=== PATIENT | female | born 1990 | race Caucasian/White ===

== ENCOUNTER 2017-02-15 11:05 | Emergency (ER) | payer MEDICAID, OTHER ==
[2017-02-15 11:30] VITALS: BP 122/67
--- NOTE | 2017-02-15 11:34 | ER Document Report ---
ED Medical Screen (RME) - General Stated Complaint: THROAT PAIN Notes: 26 yo female c/o sore throat x 3 days. + fever. + tonsillar exudate. no abscess appreciated no difficulty talking or swallowing TRAVEL OUTSIDE OF THE [place] IN LAST 30 DAYS: No - Related Data Allergies/Adverse Reactions: No Known Allergies Allergy (Verified 02/07/17 16:41) Past Medical History Renal/ Medical History: Denies: Hx Peritoneal Dialysis Musculoskeltal Medical History: Reports Hx Musculoskeletal Trauma Traumatic Medical History: Reports: Hx Fractures - arm right - Immunizations Immunizations up to date: Yes Hx Diphtheria, Pertussis, Tetanus Vaccination: Yes Physical Exam - Vital signs Vitals: Temp Pulse Resp BP Pulse Ox 98.8 F 106 H 16 122/67 97 02/15/17 11:28 02/15/17 11:28 02/15/17 11:28 02/15/17 11:28 02/15/17 11:28 Course - Vital Signs Vital signs: Temp Pulse Resp BP Pulse Ox 98.8 F 106 H 16 122/67 97 02/15/17 11:28 02/15/17 11:28 02/15/17 11:28 02/15/17 11:28 02/15/17 11:28
--- NOTE | 2017-02-15 12:05 | ER Document Report ---
ED ENT - General Chief Complaint: Sore Throat Stated Complaint: THROAT PAIN Notes: The patient is a 26-year-old female who presents with 2 days of sore throat and fevers. She is having pain when she swallows, but she is able to swallow. Denies trismus, tongue elevation, cough, stridor, nausea or vomiting. TRAVEL OUTSIDE OF THE [place] IN LAST 30 DAYS: No - Related Data Allergies/Adverse Reactions: No Known Allergies Allergy (Verified 02/07/17 16:41) Past Medical History - General Information source: Patient - Social History Smoking Status: Current Every Day Smoker Smoking Education Provided: Yes - Patient counseled about smoking cessation for 5 minutes. Frequency of alcohol use: None Drug Abuse: None Family History: Reviewed & Not Pertinent, CVA, Hyperlipidemia Patient has suicidal ideation: No Patient has homicidal ideation: No Renal/ Medical History: Denies: Hx Peritoneal Dialysis Musculoskeltal Medical History: Reports Hx Musculoskeletal Trauma Traumatic Medical History: Reports: Hx Fractures - arm right - Immunizations Immunizations up to date: Yes Hx Diphtheria, Pertussis, Tetanus Vaccination: Yes Review of Systems - Review of Systems Notes: REVIEW OF SYSTEMS: CONSTITUTIONAL: -fevers, -chills EENT: -eye pain, -difficulty swallowing, -nasal congestion, +sore throat CARDIOVASCULAR:-chest pain, -syncope. RESPIRATORY: -cough, -SOB GASTROINTESTINAL: -abdominal pain, -nausea, -vomiting, -diarrhea GENITOURINARY: -dysuria, -hematuria MUSCULOSKELETAL: -back pain, -neck pain SKIN: -rash or skin lesions. HEMATOLOGIC: -easy bruising or bleeding. LYMPHATIC: -swollen, enlarged glands. NEUROLOGICAL: -altered mental status or loss of consciousness, -headache, - neurologic symptoms PSYCHIATRIC: -anxiety, -depression. ALL OTHER SYSTEMS REVIEWED AND NEGATIVE. Physical Exam - Vital signs Vitals: Temp Pulse Resp BP Pulse Ox 98.8 F 106 H 16 122/67 97 02/15/17 11:28 02/15/17 11:28 02/15/17 11:28 02/15/17 11:28 02/15/17 11:28 - Notes Notes: PHYSICAL EXAMINATION: GENERAL: Well-appearing, well-nourished and in no acute distress. HEAD: Atraumatic, normocephalic. EYES: Pupils equal round and reactive to light, extraocular movements intact, sclera anicteric, conjunctiva are normal. ENT: Tonsillar exudates, no trismus or tongue elevation, no asymmetry of the tonsils, nares patent, patent airway, moist mucous membranes. NECK: Normal range of motion, left anterior lymphadenopathy LUNGS: Breath sounds clear to auscultation bilaterally and equal. No wheezes rales or rhonchi. HEART: Regular rate and rhythm without murmurs ABDOMEN: Soft, nontender, normoactive bowel sounds. No guarding, no rebound. No masses appreciated. EXTREMITIES: Normal range of motion, no pitting or edema. No cyanosis. NEUROLOGICAL: Cranial nerves grossly intact. Normal speech, normal gait. Normal sensory, motor, and reflex exams. PSYCH: Normal mood, normal affect. SKIN: Warm, Dry, normal turgor, no rashes or lesions noted. Course - Re-evaluation Re-evalutation: Pt with 4 Centor criteria. Rapid strep sent from triage is negative. Culture sent. Provide patient with antibiotic and instructions to fill it if her culture is positive. Also provide patient with Decadron to help with any pain and swelling. No evidence of MEDICAL DEVICE ENGINEER, RPA or epiglottitis at this time. - Vital Signs Vital signs: Temp Pulse Resp BP Pulse Ox 98.8 F 106 H 16 122/67 97 02/15/17 11:28 02/15/17 11:28 02/15/17 11:28 02/15/17 11:28 02/15/17 11:28 Discharge - Discharge Clinical Impression: Acute pharyngitis Qualifiers: Pharyngitis/tonsillitis etiology: unspecified etiology Qualified Code(s): J02.9 - Acute pharyngitis, unspecified Condition: Stable Disposition: HOME, SELF-CARE Additional Instructions: SORE THROAT: Sore throats may be caused by viruses, bacteria, or fungi. Most are due to a virus, and must get better on their own. Bacterial sore throats, particularly those due to "strep," need treatment with antibiotics. If an antibiotic is prescribed, be sure to take the medication for a full 10 days. Failure to take the antibiotic can result in complications such as rheumatic fever. Sometimes, an injection of antibiotics is given instead of pills or liquid. This single "shot" is equal in effectiveness to the oral medication. To relieve symptoms, take acetaminophen for pain. Sip clear liquids frequently, or eat popsicles or ice chips. Anesthetic sprays or lozenges may help. Make sure the air in the room is not too dry. Avoid using decongestants or antihistamines. Call the doctor if there is no improvement in two days, or if you have difficulty breathing, increasing throat pain, high fever, rash, or frequent vomiting. STREP THROAT: Your sore throat is due to the streptococcus germ (strep throat). Strep throat usually makes you feel quite ill with fever and aches, headache, swollen sore throat, and tender bumps under the angles of the jaw. Strep throat requires antibiotic treatment. Although the sore throat may go away by itself, complications such as rheumatic fever, kidney disease, or throat abscess can occur. We usually prescribe antibiotics by mouth. Be sure to take the medicine until it's gone. If you stop early, the strep may come back. If you are vomiting, are severely ill, or can't remember to take pills, we can give you an antibiotic shot. Take acetaminophen or ibuprofen for pain and fever. Sip frequent clear liquids, or use popsicles or ice chips. Anesthetic sprays or lozenges may help. Make sure the air in the room is not too dry. Avoid using decongestants or antihistamines. Call the doctor if there is no improvement in three days, or if you have difficulty breathing, increasing throat pain, high fever, rash, or frequent vomiting. STEROID MEDICATION: You have been given a medicine of the cortisone/steroid class. This medication is used to control inflammation or allergy. It is usually only given for a short period of time, until the acute process subsides. There are usually no side effects from short-term use of cortisone-like medications. Some persons feel an increased sense of well-being and are not sleepy at bedtime. Long-term use of cortisone medications is best avoided, unless required for a severe condition. If your condition does not remit, or relapses after the course of corticosteroid medication, you should consult your physician. FOLLOW-UP CARE: If you have been referred to a physician for follow-up care, call the physician s office for an appointment as you were instructed or within the next two days. If you experience worsening or a significant change in your symptoms, notify the physician immediately or return to the Emergency Department at any time for re-evaluation. Prescriptions: Amoxicillin 500 mg PO Q12H 20 Days Forms: Smoking Cessation Education
[2017-02-15] MEDS ORDERED: DEXAMETHASONE 4 MG TABLET PO ONE (12:41)
== END 2017-02-15 13:10 | disposition home or self-care (01) ==
LOC: ER 11:05
DX: J02.9 Acute pharyngitis, unspecified (principal); F17.200 Nicotine dependence, unspecified, uncomplicated; Z71.6 Tobacco abuse counseling
CPT/HCPCS: 87070; 87880; 99283; 99406

== ENCOUNTER 2017-11-24 16:21 | Emergency (ER) | payer SELFPAY ==
[2017-11-24 16:28] VITALS: BP 96/68
--- NOTE | 2017-11-24 17:03 | ER Document Report ---
ED General - General Chief Complaint: Vaginal Bleeding Stated Complaint: VAGINAL BLEEDING Time Seen by Provider: 11/24/17 16:55 Mode of Arrival: Ambulatory Information source: Patient Notes: Patient is a 27 year old female presenting to the emergency department complaining of vaginal bleeding while onset 3 days ago. Patient states that she had intercourse 10/20/2017 and took Plan B on 10/21/2017. Patient states she has not seen a provider for her possible but has taken multiple tests that came out positive. TRAVEL OUTSIDE OF THE [place] IN LAST 30 DAYS: No - Related Data Allergies/Adverse Reactions: No Known Allergies Allergy (Verified 02/07/17 16:41) Past Medical History - Social History Family History: Reviewed & Not Pertinent, CVA, Hyperlipidemia Renal/ Medical History: Denies: Hx Peritoneal Dialysis Musculoskeltal Medical History: Reports Hx Musculoskeletal Trauma Traumatic Medical History: Reports: Hx Fractures - arm right - Immunizations Immunizations up to date: Yes Hx Diphtheria, Pertussis, Tetanus Vaccination: Yes Physical Exam - Vital signs Vitals: Temp Pulse Resp BP Pulse Ox 98.3 F 97 16 96/68 L 100 11/24/17 16:28 11/24/17 16:28 11/24/17 16:28 11/24/17 16:28 11/24/17 16:28 - General General appearance: Appears well, Alert In distress: None - HEENT Head: Normocephalic, Atraumatic Eyes: Normal - Respiratory Respiratory status: No respiratory distress Course - Vital Signs Vital signs: Temp Pulse Resp BP Pulse Ox 98.3 F 97 16 96/68 L 100 11/24/17 16:28 11/24/17 16:28 11/24/17 16:28 11/24/17 16:28 11/24/17 16:28 Scribe Documentation - Scribe Written by Grisel:: Rakesh Souza
--- NOTE | 2017-11-24 17:12 | ER Document Report ---
ED Medical Screen (RME) - General Mode of Arrival: Ambulatory Information source: Patient <HUMBERTO ALFARO - Last Filed: 11/24/17 17:11> <ARMANDO MILLER - Last Filed: 11/24/17 19:28> - General Chief Complaint: Vaginal Bleeding Stated Complaint: VAGINAL BLEEDING Time Seen by Provider: 11/24/17 16:55 Notes: Patient is a 27 year old female presenting to the emergency department complaining of vaginal bleeding while onset 3 days ago. Patient states that she had intercourse 10/20/2017 and took Plan B on 10/21/2017. Patient states she has not seen a provider for her possible but has taken multiple tests that came out positive. (ANGELINAHUMBERTO) - Related Data Allergies/Adverse Reactions: No Known Allergies Allergy (Verified 02/07/17 16:41) Past Medical History - Social History Chew tobacco use (# tins/day): No Frequency of alcohol use: None Drug Abuse: None Renal/ Medical History: Denies: Hx Peritoneal Dialysis Musculoskeltal Medical History: Reports Hx Musculoskeletal Trauma Traumatic Medical History: Reports: Hx Fractures - arm right - Immunizations Immunizations up to date: Yes Hx Diphtheria, Pertussis, Tetanus Vaccination: Yes <ANGELINA,TAMMORENITA - Last Filed: 11/24/17 17:11> Physical Exam - General General appearance: Appears well, Alert In distress: None - HEENT Head: Normocephalic, Atraumatic Eyes: Normal Conjunctiva: Normal - Respiratory Respiratory status: No respiratory distress <ANGELINAHUMBERTO - Last Filed: 11/24/17 17:11> - Vital signs Vitals: Temp Pulse Resp BP Pulse Ox 98.3 F 97 16 96/68 L 100 11/24/17 16:28 11/24/17 16:28 11/24/17 16:28 11/24/17 16:28 11/24/17 16:28 Course <ANGELINA,TAMMORENITA - Last Filed: 11/24/17 17:11> - Laboratory Result Diagrams: 11/24/17 17:21 11/24/17 17:21 <ARMANDO MILLER - Last Filed: 11/24/17 19:28> - Re-evaluation Re-evalutation: 11/24/17 19:28 I personally performed the services described in the documentation, reviewed and edited the documentation which was dictated to the scribe in my presence, and it accurately records my words and actions. (ARMANDO MILLER) - Vital Signs Vital signs: Temp Pulse Resp BP Pulse Ox 98.3 F 97 16 96/68 L 100 11/24/17 16:28 11/24/17 16:28 11/24/17 16:28 11/24/17 16:28 11/24/17 16:28 - Laboratory Laboratory results interpreted by me: 11/24/17 11/24/17 17:21 17:21 Glucose 64 L Beta HCG, Quant 01685.00 H Urine Glucose (UA) >=500 H Urine Blood MODERATE H Urine Nitrite POSITIVE H Doctor's Discharge <HUMBERTO ALFARO - Last Filed: 11/24/17 17:11> <ARMANDO MILLER - Last Filed: 11/24/17 19:28> - Discharge Clinical Impression: Threatened Qualifiers: Weeks of gestation: 15 weeks Qualified Code(s): Z3A.15 - 15 weeks gestation of UTI (urinary tract infection) Qualifiers: Urinary tract infection type: acute cystitis Hematuria presence: without hematuria Qualified Code(s): N30.00 - Acute cystitis without hematuria Condition: Fair Disposition: HOME, SELF-CARE Instructions: Bleeding During Early ([facility]), Threatened Miscarriage ( [facility]), Urinary Tract Infection, Child ([facility]) Prescriptions: Nitrofurantoin Macrocrystal [Macrodantin] 100 mg PO BID #14 capsule Forms: Return to Work Referrals: Gynecology [Provider Group] - Follow up as needed Scribe Documentation - Scribe Written by Scribe:: Grisel Mariano, 11/24/2017 17:12 acting as scribe for :: Jose L <HUMBERTO ALFARO - Last Filed: 11/24/17 17:11>
[2017-11-24 17:45] LABS: ABSOLUTE MONOCYTES (AUTO) 0.6 10^3/uL (0.1-1.4); ABSOLUTE NEUT (AUTO) 5.1 10^3/uL (1.7-8.2); BASOPHILS % (AUTO) 0.3 % (0-2); EOSINOPHILS % (AUTO) 0.4 % (0-6); HEMATOCRIT 40.8 % (36.0-47.0); HEMOGLOBIN 13.7 g/dL (12.0-15.5); LYMPHOCYTES % (AUTO) 25.6 % (13-45); MEAN CORPUSCULAR HEMOGLOBIN 29.8 pg (27.0-33.4); MEAN CORPUSCULAR HGB CONC 33.5 g/dL (32.0-36.0); MEAN CORPUSCULAR VOLUME 89 fl (80-97); PLATELET COUNT 221 10^3/uL (150-450); RED BLOOD COUNT 4.59 10^6/uL (3.72-5.28); SEGMENTED NEUTROPHILS % (AUTO) 65.7 % (42-78); TOTAL CELLS COUNTED % (AUTO) 100 %; WHITE BLOOD COUNT 7.8 10^3/uL (4.0-10.5)
[2017-11-24 17:47] LABS: AMORPHOUS SEDIMENT,URINE TRACE /HPF; APPEARANCE,URINE CLOUDY; BILIRUBIN,URINE NEGATIVE (NEGATIVE); COLOR,URINE YELLOW; GLUCOSE, URINE >=500 mg/dL (NEGATIVE); KETONES,URINE NEGATIVE (NEGATIVE); LEUKOCYTE ESTERASE,URINE NEGATIVE (NEGATIVE); NITRITE,URINE POSITIVE (NEGATIVE); PROTEIN,URINE NEGATIVE (NEGATIVE); URINE SPECIFIC GRAVITY 1.017; UROBILINOGEN,URINE NEGATIVE mg/dL (<2.0)
[2017-11-24 17:58] LABS: ALANINE AMINOTRANSFERASE 29 U/L (9-52); ALBUMIN 4.3 g/dL (3.5-5.0); ALKALINE PHOSPHATASE 59 U/L (38-126); ANION GAP 12 (5-19); ASPARTATE AMINO TRANSFERASE 18 U/L (14-36); BILIRUBIN,DIRECT 0.2 mg/dL (0.0-0.4); BILIRUBIN,TOTAL 0.3 mg/dL (0.2-1.3); BLOOD UREA NITROGEN 7 mg/dL (7-20); CARBON DIOXIDE 22 mmol/L (22-30); CHLORIDE 106 mmol/L (98-107); GLUCOSE 64 mg/dL (75-110); POTASSIUM 4.2 mmol/L (3.6-5.0); SODIUM 139.9 mmol/L (137-145); TOTAL PROTEIN 6.4 g/dL (6.3-8.2)
--- NOTE | 2017-11-24 18:39 | RADIOLOGY REPORT (SQ) ---
EXAM DESCRIPTION: U/S OB TRANSVAG W/DOPPLER COMPLETED DATE/TIME: 11/24/2017 6:30 pm REASON FOR STUDY: , pain COMPARISON: None. TECHNIQUE: Transvaginal static and realtime grayscale images acquired of the pelvis. Additional arcelia cted spectral and color Doppler images recorded. All images stored on PACs. bHCG: Pending. LIMITATIONS: None. FINDINGS: FETUS: Living intrauterine . EGA: 6 weeks 6 days NELA: 07/14/2018 FHR: 139 beats per minute. SUBCHORIONIC BLEED: Yes SIZE OF BLEED: 2.9 x 1.6 x 1.4 cm UTERUS: No masses. No anomalies. CERVICAL LENGTH: 3.2 cm Closed. RIGHT ADNEXA: Normal ovary with normal vascular flow. No adnexal free fluid. No adnexal masses. LEFT ADNEXA: Normal ovary with normal vascular flow. No adnexal free fluid. No adnexal masses. FREE FLUID: None. OTHER: No other significant finding. IMPRESSION: LIVING INTRAUTERINE . EGA 6 weeks 6 days Trimester of : First - 0 to 13 weeks. TECHNICAL DOCUMENTATION: JOB ID: [id number] [place]-72 2010 [employer]- All Rights Reserved
--- NOTE | 2017-11-24 19:08 | ER Document Report ---
ED GI/ - General Chief Complaint: Vaginal Bleeding Stated Complaint: VAGINAL BLEEDING Time Seen by Provider: 11/24/17 16:55 Mode of Arrival: Ambulatory Notes: 27 years old female presents today with vaginal bleeding, after having had no menstrual cycle from October 24 she says. She states that she took Plan B pill after an unprotected sex after the , and she believes that she cannot be . Denies any fever chills or other constitutional symptoms. As on and off cramps. TRAVEL OUTSIDE OF THE [place] IN LAST 30 DAYS: No - Related Data Allergies/Adverse Reactions: No Known Allergies Allergy (Verified 02/07/17 16:41) Past Medical History - General Information source: Patient - Social History Smoking Status: Current Every Day Smoker Chew tobacco use (# tins/day): No Frequency of alcohol use: None Drug Abuse: None Family History: Reviewed & Not Pertinent, CVA, Hyperlipidemia Patient has suicidal ideation: No Patient has homicidal ideation: No Renal/ Medical History: Denies: Hx Peritoneal Dialysis Musculoskeltal Medical History: Reports Hx Musculoskeletal Trauma Traumatic Medical History: Reports: Hx Fractures - arm right - Immunizations Immunizations up to date: Yes Hx Diphtheria, Pertussis, Tetanus Vaccination: Yes Review of Systems - Review of Systems Notes: REVIEW OF SYSTEMS: CONSTITUTIONAL : Denies fever, chills, or sweats. Denies recent illness. EENT: Denies eye, ear, throat, or mouth pain or symptoms. Denies nasal or sinus congestion or discharge. Denies throat, tongue, or mouth swelling or difficulty swallowing. CARDIOVASCULAR: Denies chest pain. Denies palpitations or racing or irregular heart beat. Denies ankle edema. RESPIRATORY: Denies cough, cold, or chest congestion. Denies shortness of breath, difficulty breathing, or wheezing. GASTROINTESTINAL: Denies abdominal pain or distention. Denies nausea, vomiting , or diarrhea. Denies blood in vomitus, stools, or per rectum. Denies black, tarry stools. Denies constipation. GENITOURINARY: Denies difficulty urinating, painful urination, burning, frequency, blood in urine, or discharge. FEMALE GENITOURINARY: Denies vaginal bleeding, heavy or abnormal periods, irregular periods. Denies vaginal discharge or odor. MUSCULOSKELETAL: Denies back or neck pain or stiffness. Denies joint pain or swelling. SKIN: Denies rash, lesions or sores. HEMATOLOGIC : Denies easy bruising or bleeding. LYMPHATIC: Denies swollen, enlarged glands. NEUROLOGICAL: Denies confusion or altered mental status. Denies passing out or loss of consciousness. Denies dizziness or lightheadedness. Denies headache. Denies weakness or paralysis or loss of use of either side. Denies problems with gait or speech. Denies sensory loss, numbness, or tingling. Denies seizures. PSYCHIATRIC: Denies anxiety or stress. Denies depression, suicidal ideation, or homicidal ideation. ALL OTHER SYSTEMS REVIEWED AND NEGATIVE. PHYSICAL EXAMINATION: GENERAL: Well-appearing, well-nourished and in no acute distress. HEAD: Atraumatic, normocephalic. EYES: Pupils equal round and reactive to light, extraocular movements intact, conjunctiva are normal. ENT: Nares patent, oropharynx clear without exudates. Moist mucous membranes. NECK: Normal range of motion, supple without lymphadenopathy LUNGS: Breath sounds clear to auscultation bilaterally and equal. No wheezes rales or rhonchi. HEART: Regular rate and rhythm without murmurs ABDOMEN: Soft, nontender, nondistended abdomen. No guarding, no rebound. No masses appreciated. Female : deferred Musculoskeletal: Normal range of motion, no pitting or edema. No cyanosis. NEUROLOGICAL: Cranial nerves grossly intact. Normal speech, normal gait. Normal sensory, motor exams PSYCH: Normal mood, normal affect. SKIN: Warm, Dry, normal turgor, no rashes or lesions noted. Dictation was performed using [employer] voice recognition software Physical Exam - Vital signs Vitals: Temp Pulse Resp BP Pulse Ox 98.3 F 97 16 96/68 L 100 11/24/17 16:28 11/24/17 16:28 11/24/17 16:28 11/24/17 16:28 11/24/17 16:28 Course - Re-evaluation Re-evalutation: 11/24/17 19:05 She was explained the beta-hCG finding as well as ultrasound finding. She was confused because Thanksgiving was only about 4-5 weeks now but she is 6 weeks and 6 days. She was explained about the findings and asked to follow- up with [facility]. Also wants to take complete bedrest. No sexual activity, no long distance driving, no roller coasters, - Vital Signs Vital signs: Temp Pulse Resp BP Pulse Ox 98.3 F 97 16 96/68 L 100 11/24/17 16:28 11/24/17 16:28 11/24/17 16:28 11/24/17 16:28 11/24/17 16:28 - Laboratory Result Diagrams: 11/24/17 17:21 11/24/17 17:21 Laboratory results interpreted by me: 11/24/17 11/24/17 17:21 17:21 Glucose 64 L Beta HCG, Quant 53622.00 H Urine Glucose (UA) >=500 H Urine Blood MODERATE H Urine Nitrite POSITIVE H - Diagnostic Test Radiology reviewed: Reports reviewed - Ultrasound report was reviewed Discharge - Discharge Clinical Impression: Threatened Qualifiers: Weeks of gestation: 15 weeks Qualified Code(s): Z3A.15 - 15 weeks gestation of UTI (urinary tract infection) Qualifiers: Urinary tract infection type: acute cystitis Hematuria presence: without hematuria Qualified Code(s): N30.00 - Acute cystitis without hematuria Condition: Fair Disposition: HOME, SELF-CARE Instructions: Threatened Miscarriage ([facility]), Bleeding During Early ( [facility]), Urinary Tract Infection, Child ([facility]) Prescriptions: Nitrofurantoin Macrocrystal [Macrodantin] 100 mg PO BID #14 capsule Referrals: Gynecology [Provider Group] - Follow up as needed
== END 2017-11-24 19:25 | disposition home or self-care (01) ==
LOC: ER 16:21
DX: O20.0 Threatened abortion (principal); O23.12 Infections of bladder in pregnancy, second trimester; O99.332 Smoking (tobacco) complicating pregnancy, second trimester; Z3A.15 15 weeks gestation of pregnancy
CPT/HCPCS: 36415; 76817; 80053; 81001; 84702; 85025; 86900; 86901; 93976; 99284

== ENCOUNTER 2019-07-15 00:49 | Emergency (ER) | payer MEDICAID ==
[2019-07-15 02:00] LABS: ABSOLUTE EOSINOPHILS # (AUTO) 0.1 10^3/uL (0.0-0.6); ABSOLUTE LYMPHOCYTES (AUTO) 3.3 10^3/uL (0.5-4.7); ABSOLUTE MONOCYTES (AUTO) 0.8 10^3/uL (0.1-1.4); ABSOLUTE NEUT (AUTO) 6.2 10^3/uL (1.7-8.2); BASOPHILS % (AUTO) 0.4 % (0-2); EOSINOPHILS % (AUTO) 0.9 % (0-6); LYMPHOCYTES % (AUTO) 31.5 % (13-45); MEAN CORPUSCULAR HEMOGLOBIN 29.4 pg (27.0-33.4); MEAN CORPUSCULAR HGB CONC 34.1 g/dL (32.0-36.0); MEAN CORPUSCULAR VOLUME 86 fl (80-97); MONOCYTES % (AUTO) 7.5 % (3-13); PLATELET COUNT 217 10^3/uL (150-450); RED BLOOD COUNT 4.41 10^6/uL (3.72-5.28); RED CELL DISTRIBUTION WIDTH 13.5 % (11.5-14.0); SEGMENTED NEUTROPHILS % (AUTO) 59.7 % (42-78); TOTAL CELLS COUNTED % (AUTO) 100 %; WHITE BLOOD COUNT 10.4 10^3/uL (4.0-10.5)
--- NOTE | 2019-07-15 03:29 | ER Document Report ---
ED General - General Chief Complaint: OB Problem (<20wks) Stated Complaint: OB PROBLEM Time Seen by Provider: 07/15/19 01:31 Primary Care Provider: CARSON ARRIOLA MD [Primary Care Provider] - Follow up as needed Notes: GTed, P1 female with 3 terminations and one spot in his currently 7 weeks by dates and confirmed in the OB office presents with low back pain and mild abdominal cramping. No bleeding or discharge. Woke up 2 days ago with the symptoms and then woke up yesterday without any of her nausea or symptoms. Denies urinary symptoms. TRAVEL OUTSIDE OF THE [place] IN LAST 30 DAYS: No - Related Data Allergies/Adverse Reactions: No Known Allergies Allergy (Verified 02/07/17 16:41) Past Medical History - Social History Smoking Status: Never Smoker Family History: Reviewed & Not Pertinent, CVA, Hyperlipidemia Renal/ Medical History: Denies: Hx Peritoneal Dialysis Musculoskeletal Medical History: Reports Hx Musculoskeletal Trauma Traumatic Medical History: Reports: Hx Fractures - arm right - Immunizations Immunizations up to date: Yes Hx Diphtheria, Pertussis, Tetanus Vaccination: Yes Review of Systems - Review of Systems Notes: REVIEW OF SYSTEMS GEN: Denies fever, chills, weight loss ENT: Denies sore throat, nasal discharge, ear pain EYES: Denies blurry vision, eye pain, discharge CV: Denies chest pain, palpitations, edema RESP: Denies cough, shortness of breath, wheezing GI: Abdominal cramping MSK: Back pain SKIN: Denies rash, skin lesions LYMPH: Denies swollen glands/lymph nodes NEURO: Denies headache, focal weakness or numbness, dizziness PSYCH: Denies depression, suicidal or homicidal ideation PHYSICAL EXAMINATION General: No acute distress, well-nourished Head: Atraumatic, normocephalic ENT: Mouth normal, oropharynx moist, no exudates or tonsillar enlargement Eyes: Conjunctiva normal, pupils equal, lids normal Neck: No JVD, supple, no guarding CVS: Normal rate, regular rhythm, no murmurs Resp: No resp distress, equal and normal breath sounds bilaterally GI: Nondistended, soft, no tenderness to palpation, no rebound or guarding Ext: No deformities, no edema, normal range of motion in upper and lower ext Back: No CVA or midline TTP Skin: No rash, warm Lymphatic: No lymphadeopathy noted Neuro: Awake, alert. Face symmetric. GCS 15. Physical Exam - Vital signs Vitals: Temp Pulse Resp BP Pulse Ox 98.6 F 99 16 133/88 H 97 07/15/19 00:55 07/15/19 00:55 07/15/19 00:55 07/15/19 00:55 07/15/19 00:55 Course - Re-evaluation Re-evalutation: 07/15/19 03:28 First trimester abdominal pain. Will check ultrasound and attempt to rule in intrauterine . Patient is already Rh+ confirmed by labs. No urinary symptoms to suggest UTI or pyelonephritis. No fever. - Vital Signs Vital signs: Temp Pulse Resp BP Pulse Ox 98.6 F 99 16 133/88 H 97 07/15/19 00:55 07/15/19 00:55 07/15/19 00:55 07/15/19 00:55 07/15/19 00:55 - Laboratory Result Diagrams: 07/15/19 01:45 Discharge - Discharge Clinical Impression: Abdominal cramping complicating Condition: Good Disposition: HOME, SELF-CARE Referrals: CARSON ARRIOLA MD [Primary Care Provider] - 07/17/19 (Patient needs repeat beta-hCG)
--- NOTE | 2019-07-15 03:55 | RADIOLOGY REPORT (SQ) ---
US PELVIS EXAM DATE: 07/15/2019 1:37 AM CDT HISTORY: Pelvic pain. COMPARISON: None. TECHNIQUE: Grayscale, color Doppler, and spectral Doppler ultrasound images of the pelvis were obtained. FINDINGS: The uterus is retroverted and measures 9.8 x 6.3 x 7.5 cm. There is an intrauterine gestational sac with a yolk sac and pole measuring 1.14 cm corresponding to 7 weeks 2 days of . The heart rate is 141 bpm. The cervix is closed and measures 3.3 cm in length. The ovaries are not well-visualized. IMPRESSION: Single live IUP with estimated gestational age 7 weeks 2 days.
[2019-07-15 05:08] LABS: APPEARANCE,URINE SLIGHTLY-CLOUDY; BILIRUBIN,URINE NEGATIVE (NEGATIVE); COLOR,URINE YELLOW; GLUCOSE, URINE NEGATIVE (NEGATIVE); KETONES,URINE NEGATIVE (NEGATIVE); LEUKOCYTE ESTERASE,URINE NEGATIVE (NEGATIVE); NITRITE,URINE NEGATIVE (NEGATIVE); PROTEIN,URINE NEGATIVE (NEGATIVE); URINE SPECIFIC GRAVITY 1.027; UROBILINOGEN,URINE NEGATIVE mg/dL (<2.0)
[2019-07-15 05:22] VITALS: BP 119/67
== END 2019-07-15 05:22 | disposition home or self-care (01) ==
LOC: ER 00:49
DX: O26.891 Other specified pregnancy related conditions, first trimester (principal); M54.5 Low back pain; R10.9 Unspecified abdominal pain; Z3A.01 Less than 8 weeks gestation of pregnancy
CPT/HCPCS: 36415; 76817; 81001; 84702; 85025; 86900; 86901; 99284

== ENCOUNTER 2020-02-18 11:32 | Outpatient (CLI) | payer MEDICAID ==
[2020-02-18 12:11] LABS: HEMATOCRIT 33.1 % (36.0-47.0); HEMOGLOBIN 10.7 g/dL (12.0-15.5); MEAN CORPUSCULAR HEMOGLOBIN 23.6 pg (27.0-33.4); MEAN CORPUSCULAR HGB CONC 32.2 g/dL (32.0-36.0); MEAN CORPUSCULAR VOLUME 73 fl (80-97); PLATELET COUNT 225 10^3/uL (150-450); RED BLOOD COUNT 4.53 10^6/uL (3.72-5.28); RED CELL DISTRIBUTION WIDTH 15.8 % (11.5-14.0); WHITE BLOOD COUNT 9.2 10^3/uL (4.0-10.5)
[2020-02-18 12:31] LABS: ALBUMIN 3.4 g/dL (3.5-5.0); ALKALINE PHOSPHATASE 224 U/L (38-126); ANION GAP 9 (5-19); ASPARTATE AMINO TRANSFERASE 24 U/L (14-36); BILIRUBIN,DIRECT 0.2 mg/dL (0.0-0.4); BILIRUBIN,TOTAL 0.4 mg/dL (0.2-1.3); BLOOD UREA NITROGEN 7 mg/dL (7-20); CALCIUM 9.6 mg/dL (8.4-10.2); CARBON DIOXIDE 19 mmol/L (22-30); CHLORIDE 105 mmol/L (98-107); GLUCOSE 94 mg/dL (75-110); POTASSIUM 4.3 mmol/L (3.6-5.0); TOTAL PROTEIN 6.6 g/dL (6.3-8.2); URIC ACID 5.4 mg/dL (2.5-6.2)
[2020-02-18 12:34] LABS: APPEARANCE,URINE CLOUDY; BILIRUBIN,URINE NEGATIVE (NEGATIVE); COLOR,URINE YELLOW; GLUCOSE, URINE NEGATIVE (NEGATIVE); KETONES,URINE NEGATIVE (NEGATIVE); LEUKOCYTE ESTERASE,URINE LARGE (NEGATIVE); NITRITE,URINE NEGATIVE (NEGATIVE); PROTEIN,URINE NEGATIVE (NEGATIVE); URINE SPECIFIC GRAVITY 1.005; UROBILINOGEN,URINE NEGATIVE mg/dL (<2.0)
[2020-02-18 12:39] LABS: URINE AMPHETAMINES SCREEN NEGATIVE; URINE BARBITURATES SCREEN NEGATIVE; URINE BENZODIAZEPINES SCREEN NEGATIVE; URINE MARIJUANA (THC) SCREEN NEGATIVE; URINE PHENCYCLIDINE SCREEN NEGATIVE
[2020-02-18 12:40] LABS: URINE COCAINE SCREEN NEGATIVE; URINE METHADONE SCREEN NEGATIVE
[2020-02-18 12:43] LABS: UR PRO/CREAT RATIO RESULT 0.6 mg/mg (0.0-0.2); URINE CREATININE 29.1 mg/dL (16-327); URINE PROTEIN 17.3 mg/dL (<12)
--- NOTE | 2020-02-18 13:52 | Non Stress Test Report ---
Non Stress Test Datetime Report Generated by CPN: 02/18/2020 13:52 DEMOGRAPHIC EGA NST: 38.2 INDICATION Indication for Study (NST) Other: PIH workup VITAL SIGNS Temperature - NST: 98.2 Pulse - NST: 101 RESP - NST: 16 NBPSYS NST: 122 NBPDIA NST: 78 URINE RESULTS Urine Protein, NST: Negative Urine Ketones - NST: Negative Urine Glucose - NST: Negative Urine Blood - NST: Positive MONITORING Monitor Explained: Monitor Explained; Test Explained; Patient Verbalized Understanding Time on Monitor: 02/18/2020 12:00 Time off Monitor: 02/18/2020 13:30 NST Duration: 90 NST INTERVENTIONS NST Interventions: PO Hydration Physician Notified NST: N Gonzales, CNM BABY A: [id number] BABY A Movement : Present Contraction Frequency : irregular FHR Baseline : 140 Accelerations : 15X15 Decelerations : None Variability : Moderate 6-25bpm NST Review: Meets Criteria for Reactive NST NST Review and Verified By : Navarro Ellison RN NST Results: Reactive NST REPORT Report Trigger: Send Report
== END 2020-02-18 13:44 | disposition home or self-care (01) ==
LOC: LC 11:32
PROVIDERS: ATTEND Obstetrics & Gynecology
DX: Z34.93 Encounter for supervision of normal pregnancy, unspecified, third trimester (principal)
CPT/HCPCS: 36415; 59025; 80053; 80307; 81005; 82570; 84156; 84550; 85027